=== PATIENT | female | born 1985 | race Caucasian/White ===

== ENCOUNTER 2018-02-05 16:13 | Emergency (ER) | payer OTHER ==
[~2018-02-05] VITALS: Ht 165.1 cm; Wt 147.9 kg
[2018-02-05 16:15] VITALS: Ht 165.1 cm; Wt 147.9 kg
[2018-02-05 16:51] VITALS: BP 122/57
== END 2018-02-05 16:51 | disposition home or self-care (01) ==
LOC: ED 16:13
DX: S86.812A Strain of other muscle(s) and tendon(s) at lower leg level, left leg, initial encounter (principal); Z98.890 Other specified postprocedural states; W10.9XXA Fall (on) (from) unspecified stairs and steps, initial encounter; Y93.89 Activity, other specified; Y92.89 Other specified places as the place of occurrence of the external cause; Y99.8 Other external cause status

== ENCOUNTER 2018-07-15 20:43 | Emergency (ER) | payer MEDICAID ==
[~2018-07-15] VITALS: Ht 162.6 cm; Wt 147.9 kg
[2018-07-15 21:23] VITALS: Ht 162.6 cm; Wt 147.9 kg
[2018-07-15 23:00] VITALS: BP 130/71
== END 2018-07-15 23:00 | disposition home or self-care (01) ==
LOC: ED 20:43
DX: S93.401A Sprain of unspecified ligament of right ankle, initial encounter (principal); W01.0XXA Fall on same level from slipping, tripping and stumbling without subsequent striking against object, initial encounter; Y93.89 Activity, other specified; Y92.89 Other specified places as the place of occurrence of the external cause; Y99.8 Other external cause status
CPT/HCPCS: J1885